=== PATIENT | female | born 1970 | race African-American/Black ===

== ENCOUNTER 2019-12-16 13:35 | Emergency (ER) | payer OTHER, SELFPAY ==
[2019-12-16 13:42] VITALS: BP 125/89; PULSE 102; RESP 18; TEMP 37.5; O2SAT 100
--- NOTE | 2019-12-16 14:09 | ED.NEUROSD ---
HPI - Neuro Symptoms/Deficit General Chief Complaint: Neuro Symptoms/Deficit Stated Complaint: I think it's [place] Palsy Time Seen by Provider: 12/16/19 14:09 Source: patient Mode of arrival: ambulatory Limitations: no limitations History of Present Illness HPI Narrative: Patient is a 49-year-old female with a history of type 2 diabetes who presents for evaluation of sores in her left ear and left-sided facial droop. Patient states symptoms began on Sunday, she had noticed some blisters present in her ear as well as ear pain, and the development of left-sided facial droop. Patient states she is having difficulty closing her left eye. No difficulty swallowing. No drooling. No arm weakness or numbness, no weakness or numbness in the lower extremities. No difficulty with ambulation. No previous history of stroke. Patient denies current headache pain, only reporting ear pain. She denies fever or chills. No history of shingles outbreak in the past. Patient states that she has had a lot of recent trauma in her life, she recently experienced the of a first cousin, and then leaving the , that first cousin's daughter was in a car accident is now in a medically induced coma coma. Patient states she has had a lot of stress recently. Related Data Home Medications Medication Instructions Recorded Confirmed atorvastatin 40 mg PO DAILY 12/16/19 gabapentin 300 mg PO TID 12/16/19 glipizide 20 mg PO BID 12/16/19 lisinopril 2.5 mg PO DAILY 12/16/19 metformin 500 mg PO BID 12/16/19 Allergies Allergy/AdvReac Type Severity Reaction Status Date / Time No Known Allergies Allergy Verified 12/16/19 13:58 Review of Systems Review of Systems: Narrative: CONSTITUTIONAL: Denies fever CARDIOVASCULAR: Denies chest pain RESPIRATORY: Denies cough or dyspnea. GASTROINTESTINAL: Denies abdominal pain SKIN: Denies rash MUSCULOSKELETAL: Denies back pain NEUROLOGIC: Denies headache, reports left ear pain PMFSH Past Medical History Medical History Diabetes Fibroid Surgical History Surgical History H/O: hysterectomy Social History Social History (Updated 12/16/19 @ 14:42 by Sonal Wilson MD) Smoking status: Current every day smoker Tobacco type: cigarettes Alcohol intake: never Substance use: never Gender identity (if verbalized by the patient): Female Exam Narrative: Exam Narrative: GENERAL: Awake, alert, conversant HEAD: Normocephalic, left-sided facial droop which includes the forehead EYES: 2+ PERRLA and EOMI. ENT: Nares clear, no rhinorrhea or epistaxis. Mucous membranes moist. Patient with vesicular lesions, blistering of external ear canal consistent with zoster. NECK: Supple. CHEST: No respiratory distress, breathing even and non labored HEART: Regular rate, sinus rhythm ABDOMEN:Non distended, non tender EXTREMITIES: Normal range of motion. No edema. SKIN: Warm, dry, no rash. NEURO: Left-sided facial droop which includes the forehead. Grimace is asymmetric. No tongue deviation. Finger to nose intact bilaterally. EOMs intact without nystagmus. Intact sensation in face. Hearing intact bilaterally. Shoulder shrug intact. Strength 5/5 bilateral upper extremities. Strength 5/5 bilateral lower extremities. Ambulatory with a narrow base, steady gait. Course Vital Signs Vital signs: Vital Signs Temperature 37.5 C 12/16/19 13:42 Pulse Rate 102 H 12/16/19 13:42 Respiratory Rate 18 12/16/19 13:42 Blood Pressure 125/89 12/16/19 13:42 Pulse Oximetry 100 12/16/19 13:42 Temperature 37.5 C 12/16/19 13:42 Pulse Rate 102 H 12/16/19 13:42 Respiratory Rate 18 12/16/19 13:42 Blood Pressure 125/89 12/16/19 13:42 Pulse Oximetry 100 12/16/19 13:42 MDM - Neuro Symptoms/Deficit MDM Narrative Medical decision making narrative: Patient presented for evaluation of le
== END 2019-12-16 14:57 | disposition home or self-care (01) ==
PROVIDERS: Emergency Provider Emergency Medicine
DX: G51.0 Bell's palsy (principal); H92.02 Otalgia, left ear; E11.9 Type 2 diabetes mellitus without complications
CPT/HCPCS: 99283

== ENCOUNTER 2024-11-28 13:43 | Emergency (ER) | payer OTHER, SELFPAY ==
--- NOTE | ~2024-11-28 | XR_ITS ---
CHEST RADIOGRAPH, PA AND LATERAL CLINICAL HISTORY: cough, uri . COMPARISON: None available TECHNIQUE: PA and lateral views of the chest. FINDINGS The cardiomediastinal silhouette is unremarkable. The lungs are clear. IMPRESSION: No focal infiltrate or effusion. Reviewed, dictated and finalized at location A.
--- OUTSIDE RECORDS SUMMARY | 2024-11-28 13:44 | XMS_ITS | Continuity of Care Document ---
Author Organization [facility] Address [address] [place] [address] Phone Care Team Providers Care Assistant In Nursing Name Role Phone Unavailable Unavailable Unavailable Medications Medication Instructions Dosage Effective Dates (start - stop) Status Comments Vicodin ES 7.5 mg-750 mg Tab take 1 tablet by oral route 4 - 6 hours as needed for pain not to exceed 5 tablets in 24hrs - Active Vicodin ES 7.5 mg-750 mg Tab take 1 tablet by oral route 4 - 6 hours as needed for pain not to exceed 5 tablets in 24hrs - No Longer Active Procedures Procedure Date Periapical first film Limit oral eval problem focused 011 Surgical extr erupted tooth Periapical first film Limit oral eval problem focused 011 Surgical extr erupted tooth Surgical extr erupted tooth Advance Directives Directive Yes / No Effective Date File Name No Information Encounters Encounter Description Practice Location Reason(s) For Visit Diagnoses Date Provider Providers Copied on Encounter [facility] , [address], [place], [place], [address], tel:[phone] [facility] [place] [facility] examination No Information [facility] , [address], [place], [place], [id number], tel:[phone] [facility] [place] [facility] No Information Family History Family Member Type Diagnosis Age At Onset No Information Payers Payer name Insurance type Covered republican ID Authoriza tion(s) No Information Social History Type Description Quantity Date Captured Comments Sex Female Smoking Status No Information Chief Complaint And Reason For Visit No Information Reason For Referral Reason For Referral No Information History Of Present Illness Encounter Date Complaint History Of Prese nt Illness No Information Functional Status Date Functional Assessmen t No Information Instructions Date Instruction Additional Infor mation No Information Assessments Type Assessment Date No Information Patient Care Teams Name Effective Dates (start - stop) Status Members No Information
--- OUTSIDE RECORDS SUMMARY | 2024-11-28 13:44 | XMS_ITS | Clinical Summary ---
Author Organization [facility] Address [address] [place] [address] Care Team Providers Care Welding Equipment Repairer Supervisor Name Role Phone Shi Shoemaker DIRECTOR PACKAGING-SITE ACQUISITION MANAGER Primary Care Provider Source Comments [facility],non-owned Affiliates and Associated Physician Practices is amultiple site organization consisting of ambulatory clinics and hospital sitesin [place], [place], [place] and [place]. This disclosure is being madepursuant to the Care Everywhere program and may not contain all information available regarding this patient. Last updated 18.[facility] Allergies No known active allergies Medications * Be aware that medications may not be up to date on this document. Alwaysverify current medications with the patient. ibuprofen (Motrin) 800 MG tablet Take 1 (one) tablet by mouth every 8 hours as needed for Pain 90 tablet 4 Active traMADol (Ultram) 50 MG tablet Take 1 (one) tablet by mouth 2 times daily as needed 4 Active butalbital-acet aminophen-caffe ine (Fioricet) 50-300-40 MG capsule TAKE 1 CAPSULE BY MOUTH EVERY 6 TO 8 HOURS NEEDED FOR PAIN 3 Active pregabalin (Lyrica) 100 MG capsule Take 1 (one) capsule by mouth 2 times daily 4 Active DULoxetine (Cymbalta) 60 MG capsule Take 1 (one) capsule by mouth once daily 3 Active glipiZIDE (Glucotrol) 5 MG tablet TAKE 1/2 TABLET BY MOUTH TWICE DAILY WITH MEALS 3 Active Jardiance 25 MG tablet Take 1 (one) tablet by mouth once daily 4 Active cyclobenzaprine (Flexeril) 10 MG tablet Take 1 (one) tablet by mouth at bedtime Active diclofenac sodium (Voltaren) 1 % gel apply TWO grams TO affected AREA FOUR TIMES DAILY Active vitamin D, ergocalciferol, (Drisdol) 1.25 MG (80817 UT) capsule TAKE 1 CAPSULE BY MOUTH EVERY WEEK FOR VITAMIN D DEFICIENCY 4 Active folic acid-vit B6-vit B12 (Folgard Rx) 2.2-25-1 MG tablet Take by mouth Active Rybelsus 3 MG tablet 4 Active acyclovir (Zovirax) 400 MG tablet Take 1 (one) tablet by mouth every 12 hours Active atorvastatin (Lipitor) 10 MG tablet Take 1 (one) tablet by mouth 4 Active ibuprofen (Motrin) 800 MG tablet TAKE 1 TABLET BY MOUTH THREE TIMES DAILY 90 tablet 4 Active Active Problems No known active problems Social History Tobacco Use Types Packs/Day Years Used Date Smoking Tobacco: Never Assessed Comments No Sex and Gender Information Value Date Recorded Sex Assigned at Not on file Legal Sex Female 6:13 AM TNT LINE SUPERVISOR Gender Identity Not on file Sexual Orientation Not on file Last Filed Vital Signs Vital Sign Reading Time Taken Comments Blood Pressure 114/75 12/27/2023 10:53 AM CDT Pulse 95 12/27/2023 10:53 AM CDT Temperature 36.6 C (97.8 F) 12/27/2023 10:53 AM CDT Respiratory Rate 16 12/27/2023 10:53 AM CDT Oxygen Saturation 100% 09/27/2023 2:26 PM CDT Inhaled Oxygen Concentration - - Weight 76.2 kg (168 lb) 11/14/2023 10:28 AM CDT Height 175.3 cm (5' 9) 08/02/2023 11:29 AM TNT LINE SUPERVISOR Body Mass Index 24.81 08/02/2023 11:29 AM TNT LINE SUPERVISOR Plan of Treatment Health Maintenance Due Date Last Done Comments COLOGUARD (AGES 45-75) - COL ON CA SCREENING 1971 COLON MONITORING 1971 COLONOSCOPY - COLON CA SCREENING 1971 CT COLONOGRAPHY - COLON CA SCREENING 1971 Colorectal Cancer Screening 1971 FIT - COLON CA SCREENING 1971 FLEX SIG - COLON CA SCREENING 1971 MAMMOGRAM 1971 HIV SCREENING 1986 HEPATITIS C SCREENING 01/16/1989 DTAP/TDAP/TD VACCINES (1 - Tdap) 1990 HEPATITIS B VACCINE (1 of 3 - 19+ 3-dose series) 1990 PAP SMEAR 01/22/1992 PNEUMOCOCCAL VACCINE 50+ (1 of 1 - PCV) 2021 ZOSTER VACCINE (1 of 2) 2021 COVID-19 VACCINE (1 - 2023-2 5 season) 2024 DEPRESSION SCREENING 05/28/2024 INFLUENZA VACCINE (Season Ended) 2025 03/31/20 19 HIB VACCINE Aged Out No longer eligi ble based on patient's age to complete this topic HPV VACCINE Aged Out No longer eligi ble based on patient's age to complete this topic MENINGOCOCCAL (Group B) VACC INE SHARED DECISION-MAKING Aged Out No longer eligibl e based on patient's age to complete this topic MENINGOCOCCAL GROUPS A/C/Y/W VACCINE Aged Out No longer eligible b ased on patient's age to complete this topic Insurance [facility] Care Teams Welding Equipment Repairer Supervisor Relationship Specialty Start Date End Date Shi Shoemaker, DIRECTOR PACKAGING-SITE ACQUISITION MANAGER [address] [place] [id number] PCP - General Nurse Practitioner 07/02/23
--- OUTSIDE RECORDS SUMMARY | 2024-11-28 13:44 | XMS_ITS | Referral Summary ---
Author Organization [facility] Address [address] [place] [address] Care Team Providers Care Industrial Aerial Installer Name Role Phone Junior BORJAS MD, Xander Vazquez Primary Care Provid er Allergies No known active allergies Medications atorvastatin (LIPITOR) 40 mg tablet Take 1 tablet (40 mg total) by mouth daily Active glipiZIDE (GLUCOTROL) 10 mg tablet Take 1 tablet (10 mg total) by mouth 2 (two) times a day before breakfast and lunch Active lisinopriL (PRINIVIL,ZESTR IL) 2.5 mg tablet Take 1 tablet (2.5 mg total) by mouth daily Active metFORMIN (GLUCOPHAGE) 500 mg tablet Take 1 tablet (500 mg total) by mouth 2 (two) times a day with meals Active traMADoL (ULTRAM) 50 mg tablet Take 1 tablet (50 mg total) by mouth every 6 (six) hours Active lancets 33 gauge [facility] Active blood-glucose meter [facility] Active blood glucose diagnostic strip Active folic acid-vit B6-vit B12 2.2-25-1 mg tablet Take by mouth Active Alcohol Prep Pads pads, medicated 0 Active acyclovir (ZOVIRAX) 400 mg tablet Take 1 tablet (400 mg total) by mouth every 12 (twelve) hours 3 Active cyclobenzaprine (FLEXERIL) 10 mg tablet Take 1 tablet (10 mg total) by mouth nightly 3 Active diclofenac sodium (VOLTAREN) 1 % gel apply TWO grams TO THE affected AREA FOUR TIMES DAILY 3 Active Gvoke HypoPen 2-Pack 1 mg/0.2 mL auto-injector take 1mg as needed by injection route as directed FOR 30 DAYS 3 Active ibuprofen (ADVIL,MOTRIN) 600 mg tablet Take 1 tablet (600 mg total) by mouth 3 (three) times a day 3 Active pregabalin (LYRICA) 100 mg capsule TAKE ONE CAPSULE TWICE DAILY around THE clock 3 Active Jardiance 25 mg tablet Take 1 tablet (25 mg total) by mouth daily [address] (CYMBALTA) 60 mg capsuleIndicati ons:Neuropathic Pain Take 1 capsule (60 mg total) by mouth daily 30 capsule 3 3 Active methocarbamoL (ROBAXIN) 750 mg tabletIndicatio ns:Chronic bilateral low back pain without sciatica Take 1 tablet (750 mg total) by mouth 3 (three) times a day as needed for muscle spasms 60 tablet 1 3 Active Active Problems Problem Noted Date Diagnosed Date Smoker 08/12/2019 Assessment & Plan (08/12/2019 5:20 PM CDT): Greater than 3 minutes was spent on smoking Education cessation. Different modalities were discussed she plans to quit within 6 months. Mixed hyperlipidemia 08/12/2019 Assessment & Plan (08/12/2019 5:20 PM CDT): Per patient cholesterol levels are well controlled she is tolerating statin therapy continue this current regimen per primary care physician PVD (peripheral vascular disease) 08/12/2019 Assessment & Plan (08/12/2019 5:20 PM CDT): Patient has evidence on noninvasive studies of very mild occlusive disease that in my opinion is not contributing to her complaint. I do not think that she has symptomatic occlusive disease. We talked in general but risk factor modification and exercise. Follow up with me on a p.r.n. basis Immunizations Immunization Administration Dates Next Due DTP 03/04/1981,11/06/1975,10/09/1975 Influenza, Quadrivalent, Spl it, Intramuscular 03/31/2019 OPV 03/04/1981, 6,11/06/1975,10/08 Pneumococcal Polysaccharide PPV23 04/30/2019 Social History Tobacco Use Types Packs/Day Years Used Date Smoking Tobacco: Every Day Cigarettes Smokeless Tobacco: Never Tobacco Cessation:Ready to Q uit: Not Asked; Counseling Given: Not Answered Alcohol Use Standard Drinks/Week Comments Yes 0 (1 standard drink = 0.6 oz pur e alcohol) AUDIT-C Answer Date Recorded Q1: How often do you have a drink containing alc ohol? Monthly or less 08/07/2019 Q2: How many drinks containi ng alcohol do you have on a typical day when you are drinking? 1 or 2 08/07/2019 Frequency of Binge Drinking Not on file 07/26 Comments No Sex and Gender Information Value Date Recorded Sex Assigned at Not on file Legal Sex Female 12:32 AM CUSTOMER SALES SPECIALIST Gender Identity Not on file Sexual Orientation Not on file Last Filed Vital Signs Vital Sign Reading Time Taken Comments Blood Pressure 112/88 12/07/2022 3:04 PM CDT Pulse 107 12/07/2022 3:04 PM CDT Temperature 36.4 C (97.5 F) 12/07/2022 3:04 PM CDT Respiratory Rate 18 12/07/2022 3:04 PM CDT Oxygen Saturation 98% 12/07/2022 3:04 PM CDT Inhaled Oxygen Concentration - - Weight 77 kg (169 lb 11.2 oz) 12/07/2022 3:04 PM CDT Height 175.3 cm (5' 9) 12/07/2022 3:04 PM CDT Body Mass Index 25.06 12/07/2022 3:04 PM CDT Plan of Treatment Not on file Goals Goal Patient Goal Type Associated Problems Recent Progress Patient-Stated? Author CCM Chronic Pain Care Plan Chronic Care Management Danna Metzger, EVAN Note: Problem: Chronic Pain Goals: 1. Minimize further functional decline 2. Maximize quality of life 3. Control pain Strategies: - Activity/exercise program recommendation - Conservative stepwise pain medicine strategy with multi-disciplinary approach - Recommend healthy lifestyle strategies and compensatory methods as needed Insurance [facility] Care Teams Industrial Aerial Installer Relationship Specialty Start Date End Date Xander Pacheco II, MD [address] [place] [id number] PCP - General 09/03/20
--- OUTSIDE RECORDS SUMMARY | 2024-11-28 13:44 | XMS_ITS | Clinical Summary ---
Author Organization [facility] Address [address] [place] [id number] Care Team Providers Care Licensed Loan Officer Assistant Name Role Phone Unavailable Primary Care Provider Unavailabl e Social History Tobacco Use Types Packs/Day Years Used Date Smoking Tobacco: Never Assessed Comments Unknown Sex and Gender Information Value Date Recorded Sex Assigned at Not on file Legal Sex Female 5:24 PM CDT Gender Identity Not on file Sexual Orientation Not on file Plan of Treatment Health Maintenance Due Date Last Done Comments Cervical Cancer Screening Pa p Smear (Age 30 to 64) Every 3 Years 1971 Colorectal Cancer Screening Colonoscopy (10 Years) 1971 Annual Physical 1974 Hepatitis C 1989 DTaP, Tdap and Td Vaccines ( 1 - Tdap) 1990 Hepatitis B Vaccines (1 of 3 - 19+ 3-dose series) 1990 Cervical Cancer Screening Pa p with HPV Testing (Age 30 to 64) Every 5 Years 2001 Cervical Cancer Screening with HPV 2001 Mammogram Screening 2011 Pneumococcal Vaccine: 50+ Ye ars (1 of 1 - PCV) 2021 Zoster Vaccines (1 of 2) 2021 COVID-19 Vaccine ( - 2023-2 5 season) 2024 Meningococcal B Vaccine Aged Out No l onger eligible based on patient's age to complete this topic Meningococcal Vaccine Aged Out No amada yessenia eligible based on patient's age to complete this topic RSV Immunizations Under 20 Months Aged Out No longer eligible based on patient's age to complete this topic
--- OUTSIDE RECORDS SUMMARY | 2024-11-28 13:44 | XMS_ITS | Clinical Summary ---
Author Organization [facility] Address [address] [place] [address] Care Team Providers Care Tag Writer Name Role Phone Junior BORJAS MD, Xander [...] 6 (six) hours Active lancets 33 gauge [facility] Active blood-glucose meter [facility] Active blood glucose diagnostic strip Active folic [...] OPV 03/04/1981, 6,11/06/1975,10/08 Pneumococcal Polysaccharide PPV23 04/30/2019 Surgical History Surgery Date Site/Laterality Comments HYSTERECTOMY OVARIAN CYST REMOVAL Medical History Medical History Date Comments Hypertension Diabetes (HCC) Social History Tobacco Use Types Packs/Day Years [...] on file Legal Sex Female 12:32 AM ADDICTION MEDICINE PHYSICIAN Gender Identity Not on file Sexual Orientation Not on file Obstetrics History Last Filed Vital Signs Vital Sign Reading [...] 12/07/2022 3:04 PM CDT Plan of Treatment Health Maintenance Due Date Last Done Comments Breast Cancer Screening-Mammogram 1971 Colon Cancer Screening-Colonoscopy 1971 Depression Screening 1971 Hepatitis C Screening 1971 Hepatitis B Screening 1989 Regular Well Visit/Exam 18-64 1989 DTaP/Tdap/Td Vaccine (4 - Tdap) 03/04/1991 03/04/1981, 11/06/1975, 10/09/1975 Pneumococcal vaccine <65 (2 of 2 - PCV) 04/30/2020 04/30/2019 Zoster Vaccine (1 of 2) 2021 Influenza Vaccine (#1) 2025 03/31/2019 Goals Goal Patient Goal Type Associated Problems [...] strategies and compensatory methods as needed Insurance [facility] Care Teams Tag Writer Relationship Specialty Start Date End Date Xander Pacheco II, MD [address] [place] [id number] PCP - General 09/03/20
[2024-11-28 13:46] VITALS: BP 101/62; PULSE 110; RESP 20; TEMP 36.3; O2SAT 100
--- OUTSIDE RECORDS SUMMARY | 2024-11-28 14:16 | XMS_ITS | Referral Summary ---
Author Organization [facility] at [facility] Address [address] [place] [address] Care Team Providers Care Caustic Strength Inspector Name Role Phone Junior BORJAS MD, Xander [...] 6 (six) hours Active lancets 33 gauge [facility] Active blood-glucose meter [facility] Active blood glucose diagnostic strip Active folic [...] on file Legal Sex Female 12:32 AM HVAC ENGINEER Gender Identity Not on file Sexual Orientation [...] strategies and compensatory methods as needed Insurance [facility] Care Teams Caustic Strength Inspector Relationship Specialty Start Date End Date Xander Pacheco II, MD [address] [place] [id number] PCP - General 09/03/20
--- OUTSIDE RECORDS SUMMARY | 2024-11-28 14:16 | XMS_ITS | Clinical Summary ---
Author Organization [facility] at the [facility] Address [address] [place] [address] Care Team Providers Care Slot Ambassador Name Role Phone Junior BORJAS MD, Xander [...] 6 (six) hours Active lancets 33 gauge [facility] [place] [place] Active blood-glucose meter [facility] [place] [place] Active blood glucose diagnostic strip Active folic [...] on file Legal Sex Female 12:32 AM SUPERVISOR GRAPHITE Gender Identity Not on file Sexual Orientation [...] strategies and compensatory methods as needed Insurance [facility] Care Teams Slot Ambassador Relationship Specialty Start Date End Date Xander Pacheco II, MD [address] [place] [phone] PCP - General 09/03/20
--- OUTSIDE RECORDS SUMMARY | 2024-11-28 14:16 | XMS_ITS | Continuity of Care Document ---
Author Organization [facility] Address [address] [place] [address] Phone Care Team Providers Care Portal Developer Name Role Phone Unavailable Unavailable Unavailable Medications [...] Diagnoses Date Provider Providers Copied on Encounter [facility] , [address], [place], [place], [id number], tel:[phone] [facility] [place] [facility] examination No Information [facility] , [address], [place], [place], [address], tel:[phone] [facility] [place] [facility] examination No Information Family History Family Member Type Diagnosis Age At Onset No Information Payers Payer name Insurance type Covered democrat ID Authoriza tion(s) No Information Social History [...]
--- OUTSIDE RECORDS SUMMARY | 2024-11-28 14:16 | XMS_ITS | Clinical Summary ---
Author Organization [email or web address] Address [address] [place] [address] Care Team Providers Care Access Clerk Name Role Phone Shi Shoemaker MAINTENANCE SUPERVISOR ELECTRICAL-ALIGNING INSPECTOR Primary Care Provider Source Comments [email or web address],non-owned Affiliates and Associated Physician Practices is amultiple site organization consisting of ambulatory clinics and hospital sitesin [place], [place], [place] and [place]. This disclosure is being madepursuant to the Care Everywhere program and may not contain all information available regarding this patient. Last updated 18.[email or web address] Allergies No known active allergies Medications * [...] Active vitamin D, ergocalciferol, (Drisdol) 1.25 MG (51767 UT) capsule TAKE 1 CAPSULE BY MOUTH [...] on file Legal Sex Female 6:13 AM LOANS CONSULTANT Gender Identity Not on file Sexual Orientation [...] 175.3 cm (5' 9) 08/02/2023 11:29 AM LOANS CONSULTANT Body Mass Index 24.81 08/02/2023 11:29 AM LOANS CONSULTANT Plan of Treatment Health Maintenance Due Date [...] patient's age to complete this topic Insurance [facility] Care Teams Access Clerk Relationship Specialty Start Date End Date Shi Shoemaker, MAINTENANCE SUPERVISOR ELECTRICAL-ALIGNING INSPECTOR [address] [place] [id number] PCP - General Nurse Practitioner 07/02/23
[2024-11-28 14:51] LABS: Influenza A QL RT-PCR Negative (Negative); Influenza B QL RT-PCR Negative (Negative); RSV RNA, RT-PCR Negative (Negative); SARS-CoV-2 RNA PCR Negative (Negative)
[2024-11-28 16:00] LABS: Strep Group A RT-PCR NOT DETECTED (Negative)
--- NOTE | 2024-11-28 16:04 | ED.URI ---
HPI - URI/Sore Throat General Chief Complaint: Upper Respiratory Infection Stated Complaint: cold, sore throat Time Seen by Provider: 11/28/24 13:48 Source: patient Mode of arrival: ambulatory Limitations: no limitations History of Present Illness HPI Narrative: Patient is a 54 y/o female who presents to the ED with c/o upper respiratory symptoms. Patient reports she has been sick for the last 3-4 weeks with dry cough, congestion, sore throat, postnasal drip. Reports over the past couple weeks, she has lost her voice. She states her PCP recently prescribed her a course of antibiotics and she finished these, but denied improvement of sx's. Denies fevers. Denies CP, SOB. Related Data Home Medications ?Medication ?Instructions ?Recorded ?Confirmed ?Last Taken ?Type atorvastatin 40 mg tablet 40 mg PO DAILY 12/16/19 Unknown History gabapentin 300 mg capsule 300 mg PO TID 12/16/19 Unknown History glipizide 10 mg tablet 20 mg PO BID 12/16/19 Unknown History lisinopril 2.5 mg tablet 2.5 mg PO DAILY 12/16/19 Unknown History metformin 500 mg tablet 500 mg PO BID 12/16/19 Unknown History Allergies Allergy/AdvReac Type Severity Reaction Status Date / Time No Known Allergies Allergy Verified 11/28/24 13:45 Review of Systems Review of Systems: All systems reviewed & are unremarkable except as noted in HPI. All systems reviewed & are unremarkable except as noted in HPI and below PMFSH Past Medical History Medical History Fibroid Diabetes Surgical History Surgical History H/O: hysterectomy Social History Social History Smoking status: Current every day smoker Tobacco type: cigarettes Alcohol intake: never Substance use: never Gender identity (if verbalized by the patient): Female Exam Narrative: GENERAL: Well appearing, well-nourished, non-toxic, in no acute distress. HEAD: Normocephalic, atraumatic. ENT: Very mild posterior pharynx erythema. No tonsillar hypertrophy or exudate. Uvula midline and nonedematous. Hoarse quality to voice. RESPIRATORY: Airway patent, respirations nonlabored. Clear to auscultation bilaterally, no rales, rhonchi, wheezing. No focal lung sounds. CARDIOVASCULAR: Regular rate and rhythm without murmurs, rubs, or gallops. MUSCULOSKELETAL: Moves all extremities. No gross deformities. SKIN: Warm, dry, normal color. NEURO: A&O X3. Speech clear. PSYCHIATRIC: Appropriate mood and affect. Normal interaction. Course Vital Signs Vital signs: Vital Signs Temperature 97.3 F L 11/28/24 13:46 Pulse Rate 110 H 11/28/24 13:46 Respiratory Rate 20 11/28/24 13:46 Blood Pressure 101/62 11/28/24 13:46 Pulse Oximetry 100 11/28/24 13:46 Oxygen Delivery Room Air 11/28/24 13:46 Temperature 97.3 F L 11/28/24 13:46 Pulse Rate 99 11/28/24 16:13 Respiratory Rate 18 11/28/24 16:13 Blood Pressure 107/58 L 11/28/24 16:13 Pulse Oximetry 98 11/28/24 16:13 Oxygen Delivery Room Air 11/28/24 13:46 MDM - URI/Sore Throat MDM Narrative Medical decision making narrative: Patient presented to ED with several week history of URI symptoms. Reports hoarse quality to voice over the past couple weeks. Vital signs stable upon arrival. Patient is afebrile. In no acute distress. Testing for influenza, RSV, COVID, strep negative. Chest x-ray is clear. Discussed lab and imaging findings with patient. Discussed high likelihood of viral URI. Do not feel patient requires abx at this time, did not improve with previous abx. Discussed continued supportive care, OTC therapies, will rx gilles hernandez. Recommended close f/u with PCP for further eval. Given return precautions. Medical Records Attestation: I reviewed the patient's medical records. Lab Data Attestation: I reviewed the patient's lab results. Labs: Lab Results 11/28/24 11/28/24 Range/Units 14:11 15:17 Influenza A (RT-PCR) Negative (Negative) Influenza B (RT-PCR) Negative (Negative) RSV (RT-PCR) Negative (Negative) SARS-CoV-2 RNA (RT-PCR) Negative (Negative) Group A Strep (PCR) Not detected (Negative) Imaging Data Attestation: I personally reviewed and interpreted this imaging study as follows: Radiologist's impression: ITS Impressions Chest X-Ray 11/28/24 14:49 IMPRESSION: No focal infiltrate or effusion. Discharge Plan Discharge Clinical Impression: Laryngitis Upper respiratory infection Qualifiers: URI type: unspecified URI Qualified Code(s): J06.9 - Acute upper respiratory infection, unspecified Patient Disposition: Home Condition: Stable Instructions: Antibiotic Form, Laringitis (ED), Upper Respiratory Infection (ED), Viral Syndrome (ED), Cold Symptoms (ED) Additional Instructions: Your testing for COVID, influenza, RSV, strep was negative. You likely have a viral upper respiratory infection that should resolve on its own. Recommend warm teas with honey, throat lozenges as needed. Stay well-hydrated at home. Utilize Tessalon Perles as needed for cough. Recommend Tylenol and Ibuprofen for discomfort and/or fevers. Recommend [id number] cough and cold medicines for symptom relief, Delsym, Mucinex, DayQuil, NyQuil, Sudafed, Robitussin, TheraFlu. Follow with primary care doctor for further evaluation. Return to the ED if you experience chest pain, difficulty breathing, unable to keep down food or drink, severe pain, or any other symptoms of concern. Patient Language: Armenian Prescriptions: New benzonatate 200 mg capsule 200 mg PO TID PRN (Reason: cough) Qty: 20 0RF No Action atorvastatin 40 mg Tablet 40 mg PO DAILY metformin 500 mg Tablet 500 mg PO BID glipizide 10 mg Tablet 20 mg PO BID gabapentin 300 mg Capsule 300 mg PO TID lisinopril 2.5 mg Tablet 2.5 mg PO DAILY prednisone 10 mg Tablets,Dose Pack See Taper PO DAILY 12 Days Qty: 42 0RF Taper: Prednisone Taper from 60 mg;12 days 60 mg DAILY for 2 Days and 0 Hour 50 mg DAILY for 2 Days and 0 Hour 40 mg DAILY for 2 Days and 0 Hour 30 mg DAILY for 2 Days and 0 Hour 20 mg DAILY for 2 Days and 0 Hour 10 mg DAILY for 2 Days and 0 Hour oxycodone-acetaminophen [Percocet] 5-325 mg tablet 1 tablet PO Q6H PRN (Reason: pain) Qty: 14 0RF acyclovir 800 mg tablet 800 mg PO QID 10 Days Qty: 40 0RF Follow-up/Referrals: Sue,MD Len [Primary Care Provider] - Time of Disposition: 16:07
[2024-11-28 16:13] VITALS: BP 107/58; PULSE 99; RESP 18; O2SAT 98
== END 2024-11-28 16:16 | disposition home or self-care (01) ==
PROVIDERS: Emergency Provider Physician Assistant; PCP Internal Medicine
DX: J06.9 Acute upper respiratory infection, unspecified (principal); J04.0 Acute laryngitis; F17.210 Nicotine dependence, cigarettes, uncomplicated; Z20.822 Contact with and (suspected) exposure to COVID-19
CPT/HCPCS: 71046; 87637; 87651; 99283